=== PATIENT | female | born 2000 | race Caucasian/White ===

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

== ENCOUNTER → 2020-05-15 | Outpatient (CLI) | payer BC ==
[2020-05-15 17:54] LABS: DHEA Sulfate 340.8 ug/dL (26.0-430.0)
[2020-05-15 17:59] LABS: Insulin Level 10.3 mIU/mL (3.0-25.0)
[2020-05-15 18:08] LABS: Follicle Stimulating Hormone 4.5 mIU/mL; Luteinizing Hormone 4.4 mIU/mL
== END | disposition home or self-care (01) ==
LOC: LABWHC1 09:08
PROVIDERS: ATTEND Obstetrics & Gynecology
DX: E28.2 Polycystic ovarian syndrome (principal)
CPT/HCPCS: 36415; 82627; 82947; 83001; 83002; 83525; 84402; 84403

== ENCOUNTER → 2021-04-29 | Outpatient (CLI) | payer BC ==
[2021-04-29 19:53] LABS: Chol/HDL Ratio 3.47 Ratio; Glucose 78 mg/dL (70-110); LDL Cholesterol,Calculated 133.4 mg/dL (0.0-131.0)
== END | disposition home or self-care (01) ==
LOC: LABWHC1 11:32
PROVIDERS: ATTEND Obstetrics & Gynecology
DX: Z13.220 Encounter for screening for lipoid disorders (principal); Z13.29 Encounter for screening for other suspected endocrine disorder; Z13.1 Encounter for screening for diabetes mellitus
CPT/HCPCS: 36415; 80061; 82947; 84439; 84443

== ENCOUNTER → 2021-09-17 | Outpatient (CLI) | payer BC ==
[2021-09-17 10:09] VITALS: BP 134/86; PULSE 77; RESP 17; TEMP 97.9
--- NOTE | 2021-09-17 10:46 | P.GSHP ---
History of Present Illness H&P Date: 09/17/21 Chief Complaint: dull ache in the left breast Katerine is a 21 year old white female with a dull ache in the left breast in the upper inner area. She is not complaining of any nipple discharge or skin changes. This was not related to her menstrual cycle. She has not had any recent breast trauma or infections. Has never had any surgery on her breast. She has not felt any lumps masses or nodules of concern in either breast. Caffeine:none nicotine: none chocolate: weekly Family history: mother: melanoma Hormonal history: Menarche: 14 G0, sexually active: yes; control on this for 16 for ovarian cyst periods regular: yes; LMP: now Surgical history: tonsil Medical History: none Social history: Nicotine: Negative Alcohol:occasional drugs: none - Constitutional Constitutional: Denies chills, Denies fever - EENT Eyes: denies blurred vision, denies pain Ears: deny: decreased hearing, tinnitus Ears, nose, mouth and throat: Denies headache, Denies sore throat - Breasts Breasts: bilateral: as per HPI - Cardiovascular Cardiovascular: Denies chest pain, Denies shortness of breath - Respiratory Respiratory: Denies cough, Denies 7 - Gastrointestinal Gastrointestinal: Reports constipation, Denies abdominal pain, Denies diarrhea, Denies nausea, Denies vomiting - Genitourinary (Female) Comment: UTI in the past - Menstruation Menstruation: Reports period normal - Musculoskeletal Musculoskeletal: Denies myalgias - Integumentary Integumentary: Denies pruritus, Denies rash - Neurological Neurological: Denies numbness, Denies weakness - Psychiatric Psychiatric: Reports anxiety - Endocrine Endocrine: Denies fatigue, Denies weight change - Hematologic/Lymphatic Comment: none - Allergic/Immunologic Comment: none Past Medical History Additional Past Medical History / Comment(s): OVARIAN CYST History of Any Multi-Drug Resistant Organisms: None Reported Past Surgical History: Tonsillectomy Past Anesthesia/Blood Transfusion Reactions: No Reported Reaction Past Psychological History: No Psychological Hx Reported Smoking Status: Never smoker Past Alcohol Use History: Occasional Past Drug Use History: None Reported Medications and Allergies Home Medications Medication Instructions Recorded Confirmed Type Norethindrone-E.estradiol-Iron 1 tablet PO DAILY 09/17/21 09/17/21 History [ Fe 1.5 mg-30 Mcg Tablet] Allergies Allergy/AdvReac Type Severity Reaction Status Date / Time No Known Allergies Allergy Unverified 09/17/21 10:02 Surgical - Exam Vital Signs Temp Pulse Resp BP Pulse Ox 97.9 F 77 17 134/86 97 09/17/21 10:04 09/17/21 10:04 09/17/21 10:04 09/17/21 10:04 09/17/21 10:04 BMI 28.2 - General no distress - Eyes normal ocular movement - Neck trachea midline - Respiratory normal respiratory effort, clear to auscultation - Cardiovascular Rhythm: regular Heart Sounds: normal: S1, S2 - Abdomen Abdomen: soft - Integumentary normal turgor - Neurologic no disoriented, no combative - Musculoskeletal normal gait, normal posture - Psychiatric oriented to time, oriented to person, oriented to place, speech is normal, memory intact Breast Exam: [id number] inspection: Bilateral grade 3 ptosis Palpation: Right breast: Multi-positional exam fibrocystic changes no dominant masses or nodules of concern Right axilla: No adenopathy of concern Left breast: Multi-positional exam fibrocystic changes increased fullness upper inner quadrant appears to be more prominent breast tissue Left axilla: No adenopathy of concern Assessment and Plan Assessment: Impression: Asymmetric breast tissue with increased fullness left breast upper inner quadrant No discrete dominant masses or nodules of concern Dull ache left breast upper inner quadrant/felt to be fibrocystic changes Plan: Avoid caffeine we have discussed lifestyle modification primrose oil ultrasound left breast upper inner quadrant follow up after ultrasound CC: Dr. Korey Coombs
== END ==
LOC: WWCWWP 09:57
PROVIDERS: ATTEND Surgery
DX: N64.89 Other specified disorders of breast (principal)

== ENCOUNTER → 2021-10-09 | Outpatient (CLI) | payer BC ==
--- NOTE | 2021-10-09 10:28 | USB ---
Reason for Exam: Clinical finding. Technique: Method: Whole Breast Automated. Findings: The whole breast of the left breast, the axilla of the left breast and the retroareolar of the left breast were scanned. No solid or cystic masses are identified.. Overall Assessment: Negative, BI-RAD 1 Management: Screening Mammogram of both breasts at age 40. A clinical breast exam by your physician is recommended on an annual basis and results should be correlated with mammographic findings. Clinical management of patient's tenderness within the breast. Electronically signed and approved by: Daryl Kraus D.O. Radiologis
== END | disposition home or self-care (01) ==
LOC: RADUSWWP 09:33
PROVIDERS: ATTEND Surgery
DX: N64.4 Mastodynia (principal)

== ENCOUNTER → 2023-12-05 | Outpatient (CLI) | payer BC ==
[2023-12-05 10:17] LABS: HCT 40.5 % (37.2-46.3); MCH 28.6 pg (27.0-32.0); MCHC 32.1 g/dL (32.0-37.0); MCV 89.2 FL (80.0-97.0); Mean Platelet Volume 9.4 FL (9.5-12.2); NRBC Per 100 WBC 0 X 10*3/uL (0.00-0.01); Platelet Count 388 X 10*3/uL (140-440); RBC 4.54 X 10*6/uL (4.10-5.20); RDW 12.7 % (11.5-14.5); WBC 9.91 X 10*3/uL (4.50-10.00)
[2023-12-05 10:35] LABS: ALT 12 U/L (8-44); AST 15 U/L (13-35); Albumin 4.4 g/dL (3.8-4.9); Albumin/Globulin Ratio 1.57 Ratio (1.60-3.17); Alkaline Phosphatase 87 U/L (41-126); BUN/Creat Ratio 15.43 Ratio (12.00-20.00); Blood Urea Nitrogen 10.8 mg/dL (9.0-27.0); Calcium 9.6 mg/dL (8.7-10.3); Carbon Dioxide 24.3 mmol/L (21.6-31.8); Chloride 101 mmol/L (96-109); Chol/HDL Ratio 3.63 Ratio; Globulin 2.8 g/dL (1.6-3.3); Glucose 87 mg/dL (70-110); Potassium 4.5 mmol/L (3.5-5.5); Sodium 139 mmol/L (135-145); Total Bilirubin 0.4 mg/dL (0.3-1.2); Total Protein 7.2 g/dL (6.2-8.2)
== END | disposition home or self-care (01) ==
LOC: LABWHC1 07:01
PROVIDERS: ATTEND Family Medicine
DX: R73.01 Impaired fasting glucose (principal); Z79.899 Other long term (current) drug therapy
CPT/HCPCS: 36415; 80053; 80061; 83036; 84443; 85027

== ENCOUNTER → 2024-11-30 | Outpatient (CLI) | payer BC ==
[2024-11-30 18:24] LABS: HCT 44.8 % (37.2-46.3); HGB 14.3 g/dL (12.0-15.0); MCH 28.6 pg (27.0-32.0); MCHC 31.9 g/dL (32.0-37.0); MCV 89.6 FL (80.0-97.0); NRBC Per 100 WBC 0 X 10*3/uL (0.00-0.01); Platelet Count 402 X 10*3/uL (140-440); RBC 5.00 X 10*6/uL (4.10-5.20); RDW 12.8 % (11.5-14.5); WBC 10.48 X 10*3/uL (4.50-10.00)
[2024-11-30 19:06] LABS: ALT 27 U/L (8-44); AST 25 U/L (13-35); Albumin 4.7 g/dL (3.8-4.9); Albumin/Globulin Ratio 1.42 Ratio (1.60-3.17); Alkaline Phosphatase 115 U/L (41-126); Anion Gap 15.50 mmol/L (4.00-12.00); BUN/Creat Ratio 11.00 Ratio (12.00-20.00); Blood Urea Nitrogen 7.7 mg/dL (9.0-27.0); Calcium 10.2 mg/dL (8.7-10.3); Carbon Dioxide 25.5 mmol/L (21.6-31.8); Chloride 98 mmol/L (96-109); Cholesterol 278.00 mg/dL (0.00-200.00); Globulin 3.3 g/dL (1.6-3.3); Glucose 84 mg/dL (70-110); HDL Cholesterol 82.20 mg/dL (40.00-60.00); LDL Cholesterol,Calculated 178.1 mg/dL (0.0-131.0); Potassium 4.7 mmol/L (3.5-5.5); Sodium 139 mmol/L (135-145); Total Protein 8.0 g/dL (6.2-8.2); Triglycerides 88.40 mg/dL (0.00-149.00); VLDL Calculation 17.68 mg/dL (5.00-40.00)
== END | disposition home or self-care (01) ==
LOC: LABWHC1 11:24
PROVIDERS: ATTEND Physician Assistant Medical
DX: I10 Essential (primary) hypertension (principal); K21.9 Gastro-esophageal reflux disease without esophagitis; Z79.899 Other long term (current) drug therapy
CPT/HCPCS: 36415; 80053; 80061; 83036; 84443; 85027